=== PATIENT | male | born 1970 | race Two or more races ===

== ENCOUNTER 2016-12-12 02:20 | Emergency (ER) | payer SELFPAY ==
--- NOTE | 2016-12-12 02:54 | ED Physician Chart ---
Chief Complaint/HPI - Patient Information Date Seen:: 12/12/16 Time Seen:: 02:40 Chief Complaint:: R foot burning sensation since yesterday morning. History of Present Illness:: Pt was brought in by ambulance because of R foot burning pain since yesterday morning. Pt states that he sustained chemical burn on dorsum of R foot when he spilled some kind of chemical on it while he was helping a friend to paint his kitchen. Pt states that he flushed his R foot with plenty of water. No weakness or numbness. No other bodily injury or pain. Last tetanus immunization was about 8 months ago. Pt is here mainly for pain control. Allergies:: Allergies Allergy/AdvReac Type Severity Reaction Status Date / Time No Known Allergies Allergy Verified 12/12/16 02:32 Vitals:: Vital Signs - 8 hr 12/12/16 02:32 Temp 97.8 F HR 64 RR 17 BP 139/82 O2 Sat % 100 Historian:: Patient Family MD/PCP:: [facility] Higinio Suarez. LMP:: N/A. Review:: Nurse's Note Reviewed Review of Systems - Review of Systems General/Constitutional: No fever, No chills, No weight loss, No weakness, No diaphoresis, No edema, No loss of appetite Skin: No bruising, Other (Chemical burn on dorsum of R foot.) Head: No headache, No light-headedness Eyes: No loss of vision, No pain, No diplopia ENT: No earache, No nasal drainage, No sore throat, No tinnitus Neck: No neck pain, No swelling, No thyromegaly, No stiffness, No mass noted Cardio Vascular: No chest pain, No palpitations, No PND, No orthopnea, No edema Pulmonary: No SOB, No cough, No sputum, No wheezing GI: No nausea, No vomiting, No diarrhea, No pain, No melena, No hematochezia, No constipation, No hematemesis G/U: No dysuria, No frequency, No hematuria Musculoskeletal: No bone or joint pain, No back pain, No muscle pain Endocrine: No polyuria, No polydipsia Psychiatric: No prior psych history Hematopoietic: No bruising, No lymphadenopathy Allergic/Immuno: No urticaria, No angioedema Neurological: No syncope, No focal symptoms, No weakness, No paresthesia, No headache, No seizure, No dizziness, No confusion, No vertigo Past Medical History - Past Medical History Past Medical History: No significant medical hx Family History: Diabetes Melitus (mother), Cancer (mother) Social History: Non Smoker, No Alcohol, No Drug Use, Single Employment:: Construction Surgical History: None Psychiatricy History: None Medication: Reviewed Family Medical History - Family Member Mother History Unknown: Yes Physical Exam - Physical Examination General/Constitutional: Awake, Well-developed, well-nourished, Alert, No distress, Non-toxic appearing Other Gen/Cons comments:: Breathes comfortably and speaks clearly. Head: Atraumatic Eyes: Lids, conjuctiva normal, PERRL, EOMI Skin: No ecchymosis, Well hydrated, No lymphadenopathy Other Skin comments:: R foot: There is an area of approx. 4 x 10 cm and another area approx 2 x 3 cm of desquamation in the dorsum. Areas are clean and dry. No swelling or exudate. No peripheral erythema, unusual warmth or crepitus. Good ROM of all joints. No detectable motor/sensory/vascular deficit. Good distal capillary refill. ENMT: External ears, nose nl, Nasal exam nl, Oropharynx nl, Tonsils nl Neck: Nontender, Full ROM w/o pain, No JVD, No nuchal rigidity, No mass, No stridor Respiratory: Nl effort/Exclusion, Clear to Auscultation, No Wheeze/Rhonchi/Rales Cardio Vascular: RRR, No murmur, gallop, rubs, NL S1 S2 Other Extremities comments:: see also Skin exam above. Neuro/Psych: Alert/oriented (oriented x 3), Mood normal, No focal deficits ED Septic Shock - . Is Septic Shock (SBP<90, OR Lactate>4 mmol\L) present?: No - <6hrs of presentation: Vital Signs: Vital Signs - 8 hr 12/12/16 02:32 Temp 97.8 F HR 64 RR 17 BP 139/82 O2 Sat % 100 Reassessment (Disposition) - Reassessment Reassessment:: 0500 Pt's R foot has been cleansed with betadine with Silvadene 1% cream applied topically. Ample sterile dressing has also been applied to provide adequate protection per nursing staff. Pt has rested well and now can ambulate comfortably. Pt requests to leave now. Aftercare instructions given. Reassessment Condition:: Improved - Diagnosis Diagnosis:: Superficial chemical burn to dorsum of R foot. Stable without sign of infection. - Aftercare/Follow up Instructions Aftercare/Follow-Up Instructions:: Refer to Discharge Instructions Notes:: Keep R foot clean and dry. Wound care instructions given. May take Motrin 200 mg tab 4 tabs po q8h prn pain, not to take first dose at least 6 hours after Toradol was given here. F/U with PCP at [facility] in one day for wound check and dressing change. Return to ER immediately if condition worsens or if any further questions/ problems. Medication Prescribed:: None - Patient Disposition Discharge/Transfer:: Home Time:: 05:00 Condition at Disposition:: Stable, Improved ED Discharge Plan - Patient Disposition Admit/Discharge/Transfer: PT DISCHARGED HOME Instructions: Chemical Burn, [id number] Additional Instructions: follow up with your primary medical doctor MURTAZA keep Right foot wound clean at all times
== END 2016-12-12 03:45 | disposition home or self-care (01) ==
LOC: ER 02:20
DX: T65.91XA Toxic effect of unspecified substance, accidental (unintentional), initial encounter (principal); Y93.89 Activity, other specified; Y92.010 Kitchen of single-family (private) house as the place of occurrence of the external cause; Y99.8 Other external cause status
CPT/HCPCS: 99284; 96374; 87075; 87205; 87070; 87081; J1885; Z7502; Z7610